=== PATIENT | female | born 1935 | race Two or more races ===

== ENCOUNTER 2018-02-09 13:38 | Inpatient (IN) | payer MEDICARE, OTHER ==
[~2018-02-09] VITALS: Ht 162.6 cm; Wt 99.1 kg
[~2018-02-09 13:38] MED LIST: AMIO200T4 PO; ATOR10TA PO; DILT120T2 PO; DOCU100C36 PO; ERGO500014 PO; FERR325T6 PO; FLUT1DIS IH; GABA-536 PO; HYDR-3024 PO; HYDR1TAB PO; MECL-118 PO; PANT40TA4 PO; PIOG45TA5 PO; PROP20TA7 PO; RAMI5CAP30 PO; RISE35TA PO; RIVA10TA PO; ZOLP5TAB2 PO
--- NOTE | 2018-02-09 13:40 | NUR ---
[id number] FROM AN ADULT [facility] DT NAUSEA, VOMITING. PER PATIENT'S DTR, PATIENT SEEMS ALTERED THAN USUAL. PATIENT RECEIVED AWAKE AND ALERT. APPEARS IN NO DISTRESS. RESPIRATION EVEN AND UNLABORED. SKIN IS WARM TO TOUCH AND NON DIAPHORETIC. AFEBRILE.
[2018-02-09 14:16] LABS: BASOPHILS % (AUTO) 0.7 % (0.0-2.0); EOSINOPHILS % (AUTO) 0.3 % (0.0-6.0); HEMATOCRIT 37 % (33-45); LYMPHOCYTES # (AUTO) 0.6 /CMM (0.8-4.8); LYMPHOCYTES % (AUTO) 12.1 % (20.0-44.0); MEAN CORPUSCULAR HGB CONC 32 g/dl (31.0-36.0); MEAN CORPUSCULAR VOLUME 82 fL (82-100); MONOCYTES # (AUTO) 0.1 /CMM (0.1-1.30); MONOCYTES % (AUTO) 1.7 % (2.0-12.0); NEUTROPHILS # (AUTO) 4.6 /CMM (1.8-8.9); NEUTROPHILS % (AUTO) 85.2 % (43.0-81.0); PLATELET COUNT (AUTO) 201 /CMM (150-450); RDW COEFFICIENT OF VARIATION 17.7 (11.5-15.0); RED BLOOD CELL COUNT(AUTO) 4.52 MIL/uL (4.0-5.2); WHITE BLOOD COUNT (AUTO) 5.3 K/uL (4.3-11.0)
[2018-02-09 14:26] LABS: CALCIUM, SERUM 9.2 mg/dL (8.5-10.1); CARBON DIOXIDE 26 mmol/L (21-32); CHLORIDE 105 mmol/L (98-107); CREATININE 1.6 mg/dL (0.6-1.3); GLUCOSE 186 mg/dL (74-106); SODIUM SERUM 140 mmol/L (136-145); UREA NITROGEN, BLOOD 47 mg/dL (7-18)
[2018-02-09 14:32] LABS: ALANINE AMINOTRANSFERASE 658 U/L (12-78); ALBUMIN 3.6 g/dL (3.4-5.0); ALKALINE PHOSPHATASE 294 U/L (46-116); BILIRUBIN,TOTAL 1.3 mg/dL (0.2-1.0); LIPASE 191 U/L (73-393); TOTAL PROTEIN, SERUM 8.4 g/dL (6.4-8.2)
--- NOTE | 2018-02-09 15:00 | NUR ---
PATIENT REFUSED IN AND OUT CATH AT THIS TIME,.
--- NOTE | 2018-02-09 15:10 | NUR ---
MD CARRILLO AT BEDSIDE
[2018-02-09] MEDS ORDERED: ONDANSETRON HCL/PF 4 MG/2 ML VIAL IV ONE (15:30)
[2018-02-09] MEDS ORDERED: FUROSEMIDE 20 MG/2 ML VIAL IV ONE (15:30)
[2018-02-09] MEDS ORDERED: FUROSEMIDE 20 MG/2 ML VIAL ONE (15:34)
[2018-02-09] MEDS ORDERED: ONDANSETRON HCL/PF 4 MG/2 ML VIAL ONE (15:34)
[2018-02-09 15:45] LABS: BAND % (MANUAL) 8 % (0.0-5.0); LYMPHOCYTES % (MANUAL) 9 % (16-48); MONOCYTES % (MANUAL) 4 % (0-11.0); NEUTROPHILS % (MANUAL) 79 (42-76)
[2018-02-09] MEDS ORDERED: LISI-607 PO (16:01)
[2018-02-09] MEDS ORDERED: OLOP5DRO15 EACHEYE (16:01)
[2018-02-09] MEDS ORDERED: TRAM50TA2 PO (16:01)
[2018-02-09] MEDS ORDERED: CLON0.5T12 PO (16:01)
[2018-02-09] MEDS ORDERED: LINA290C PO (16:01)
[2018-02-09] MEDS ORDERED: DAPA10TA PO (16:01)
[2018-02-09] MEDS ORDERED: ASPI-1169 PO (16:01)
[2018-02-09] MEDS ORDERED: BUME2TAB3 PO (16:01)
[2018-02-09] MEDS ORDERED: MELO-107 PO (16:01)
[2018-02-09] MEDS ORDERED: LOSA50TA21 PO (16:01)
[2018-02-09] MEDS ORDERED: METO-357 PO (16:01)
[2018-02-09 16:12] LABS: ASPARTATE AMINOTRANSFERASE 1175 U/L (15-37)
[2018-02-09 16:16] LABS: B-TYPE NATRIURETIC PEPTIDE 1932 PG/ML (0-125); TROPONIN I < 0.017 ng/mL (0.00-0.056)
[2018-02-09 16:18] LABS: INR 1.05 (0.87-1.13)
--- NOTE | 2018-02-09 16:42 | NUR ---
TELE 306-1 FOR GENERALIZED WEAKNESS, HYPERKALEMIA, VOMITING, STALIN MANDEL ADMITTING
--- NOTE | 2018-02-09 17:16 | NUR ---
REPORT GIVEN TO BRIAN BLEVINS
[2018-02-09] MEDS ORDERED: ONDANSETRON HCL/PF 4 MG/2 ML VIAL IVP PRN (18:00)
[2018-02-09] MEDS ORDERED: INSULIN REGULAR, HUMAN 100 UNIT/ML 3 ML VIAL SQ PRN (18:00)
[2018-02-09] MEDS ORDERED: IV NS 0.9% 1,000 ML BAG IV PRN (18:00)
[2018-02-09] MEDS ORDERED: Z GUARD REMEDY 2 OZ OINT TP PRN (18:00)
[2018-02-09] MEDS ORDERED: ZOLPIDEM TARTRATE 5 MG TABLET PO PRN (18:00)
[2018-02-09] MEDS ORDERED: MAGNESIUM HYDROXIDE 30 ML UDC PO PRN (18:00)
[2018-02-09] MEDS ORDERED: MAG HYDROX/AL HYDROX/SIMETH 30 ML UDC PO PRN (18:00)
[2018-02-09] MEDS ORDERED: HYDROCODONE/APAP 5/325MG 1 EACH TABLET PO PRN (18:00)
[2018-02-09] MEDS ORDERED: DEXTROSE 50%-WATER 50 ML DISP.SYRIN IV PRN (18:00)
--- NOTE | 2018-02-09 18:07 | NUR ---
PATIENT WAS TAKEN TO CT
--- NOTE | 2018-02-09 18:16 | NUR ---
DR. HARRINGTON (RADIOLOGIST) FROM [facility] ELECTED TO DO CT ABD. PELVIS WITHOUT CONTRAST, BECAUSE OF HIGH CREATININE (1.6).
--- NOTE | 2018-02-09 18:27 | NUR ---
PATIENT WAS TRANSFERRED TO TELE,. S
[2018-02-09] MEDS ORDERED: hydrOXYzine 10 MG TABLET PO PRN (18:30)
[2018-02-09] MEDS ORDERED: TRAMADOL HCL 50 MG TABLET PO PRN (18:30)
[2018-02-09] MEDS ORDERED: clonazePAM 0.5 MG TABLET PO PRN (18:30)
[2018-02-09 19:03] LABS: APPEARANCE,URINE Clear (CLEAR); BILIRUBIN,URINE Negative (NEGATIVE); BLOOD, URINE Trace-lysed Ery/uL (NEGATIVE); COLOR,URINE Yellow (YELLOW); KETONES,URINE Negative (NEGATIVE); LEUKOCYTE ESTERASE ,URINE Small (NEGATIVE); NITRITE, URINE Negative (NEGATIVE); PROTEIN,URINE Negative (NEGATIVE); UGLUCOSE 250 MG/DL mg/dL (NEGATIVE); UROBILINOGEN,URINE 0.2 EU/dL (0.2)
--- NOTE | 2018-02-09 19:25 | NUR ---
TELE/RN NOTES RECEIVED PT. LYING IN BED. PT. IS AWAKE, ALERT AND ORIENTED X 2-3. BREATHING EVEN AND UNLABORED ON 2LPM O2 VIA NC. NO SOB, RESPIRATORY DISTRESS OR COMPLAINTS OF PAIN NOTED AT THIS TIME. NO COMPLAINTS OF NAUSEA OR VOMITING AT THIS TIME. ORIENTED PT. TO ROOM. PT. WITH EXTERNAL QUALITY ENGINEERING MANAGER PRESENT AND INTACT. CURRENT RHYTHM = V PACING HR 60. PT. WITH RIGHT UPPER ARM 20 GAUGE IV SALINE LOCK PRESENT, PATENT AND INTACT. BED LOCKED AND IN LOWEST POSITION, SIDE RAILS UP X3, BED ALARM ON, CALL LIGHT WITHIN REACH, WILL CONTINUE TO MONITOR.
[2018-02-09 19:40] LABS: BACTERIA,URINE 3+ /HPF (None Seen); SQUAMOUS EPITHELIAL CELL,UR Few /HPF (None Seen)
[2018-02-09 19:41] LABS: RBC,URINE 0-2 /HPF (0-2)
[2018-02-09 20:00] VITALS: BP 92/54
[2018-02-09] MEDS: METRONIDAZOLE 500MG/ NS 100ML 500 MG in PREMIX 1 EA IV SCH (20:31)
[2018-02-09] MEDS: IV NS 0.9% 1,000 ML IV PRN (20:31)
--- NOTE | 2018-02-09 20:31 | NUR ---
TELE/RN NOTES ADMINISTERED 1900 SCHEDULED FLAGYL MEDICATION TO PATIENT AT THIS TIME BECAUSE MEDICATION JUST MADE AVAILABLE.
--- NOTE | 2018-02-09 21:32 | NUR ---
TELE/RN NOTES NOTIFIED [employer]ODUCT LISTER WILFRED SHAIKH TO CLARIFY PT. DIET ORDER. PER WILFRED SHAIKH OK FOR PT. TO HAVE CARDIAC DIET FOR NOW AND THEN NPO AFTER MIGNIGHT BECAUSE PT. WILL HAVE HIDA SCAN TOMORROW. NOTIFIED WILFRED SHAIKH PT. TROPONIN INCREASED FROM < 0.017 TO NOW 0.025. PT. IS CURRENTLY V PACING HR 62. VITAL SIGNS STABLE, NO COMPLAINTS OF PAIN NOTED AT THIS TIME. PER WILFRED SHAIKH OK NO NEW ORDERS, CONTINUE TO MONITOR. WILL CARRY OUT ORDERS. WILL CONTINUE TO MONITOR.
[2018-02-09] MEDS: PIPERACILLIN /TAZOBACTAM 2.25 G in IV D5W 50 ML IV SCH (21:54)
--- NOTE | 2018-02-09 21:54 | NUR ---
TELE/RN NOTES ADMINISTERED TO PT. 1900 SCHEDULED ZOSYN MEDICATION AT THIS TIME BECAUSE MEDICATION WAS PREVIOUSLY UNAVAILABLE, AND PT. WAS RECEIVING FLAGYL MEDICATION. WILL CONTINUE TO MONITOR.
[2018-02-09] MEDS: BLOOD SUGAR DIAGNOSTIC 1 EACH STRIP IN SCH (22:04)
[2018-02-10] VITALS: BP 100/54
[2018-02-10] MEDS: PIPERACILLIN /TAZOBACTAM 2.25 G in IV D5W 50 ML IV SCH ×5 (03:41→23:18)
[2018-02-10 04:00] VITALS: BP 93/59
[2018-02-10] MEDS: METRONIDAZOLE 500MG/ NS 100ML 500 MG in PREMIX 1 EA IV SCH ×3 (06:22→20:16)
[2018-02-10] MEDS: BLOOD SUGAR DIAGNOSTIC 1 EACH STRIP IN SCH ×4 (06:30→21:48)
[2018-02-10 06:31] LABS: BASOPHILS % (AUTO) 0.2 % (0.0-2.0); EOSINOPHILS % (AUTO) 0.3 % (0.0-6.0); HEMATOCRIT 33 % (33-45); HEMOGLOBIN 10.6 g/dL (11.5-14.8); LYMPHOCYTES # (AUTO) 1.1 /CMM (0.8-4.8); LYMPHOCYTES % (AUTO) 14.9 % (20.0-44.0); MEAN CORPUSCULAR HGB CONC 32 g/dl (31.0-36.0); MEAN CORPUSCULAR VOLUME 83 fL (82-100); MONOCYTES # (AUTO) 0.5 /CMM (0.1-1.30); MONOCYTES % (AUTO) 6.6 % (2.0-12.0); NEUTROPHILS # (AUTO) 5.6 /CMM (1.8-8.9); PLATELET COUNT (AUTO) 168 /CMM (150-450); RDW COEFFICIENT OF VARIATION 18.8 (11.5-15.0); RED BLOOD CELL COUNT(AUTO) 3.94 MIL/uL (4.0-5.2); WHITE BLOOD COUNT (AUTO) 7.1 K/uL (4.3-11.0)
[2018-02-10 06:45] LABS: CALCIUM, SERUM 8.5 mg/dL (8.5-10.1); CARBON DIOXIDE 24 mmol/L (21-32); CHLORIDE 108 mmol/L (98-107); CREATININE 2.3 mg/dL (0.6-1.3); GLUCOSE 110 mg/dL (74-106); MAGNESIUM 2.1 mg/dL (1.8-2.4); PHOSPHORUS 5.8 mg/dL (2.5-4.9); SODIUM SERUM 142 mmol/L (136-145); UREA NITROGEN, BLOOD 58 mg/dL (7-18)
[2018-02-10 06:53] LABS: CHOLESTEROL 91 mg/dL (<200); HDL CHOLESTEROL 44 mg/dL (40-60); LDL 45 mg/dL (0-99); TRIGLYCERIDES 62 mg/dL (30-150)
--- NOTE | 2018-02-10 06:53 | NUR ---
TELE/RN NOTES PT. IS LYING IN BED RESTING. BREATHING EVEN AND UNLABORED ON 2LPM O2 VIA NC. NO SOB, RESPIRATORY DISTRESS OR COMPLAINTS OF PAIN NOTED AT THIS TIME. NO COMPLAINTS OF NAUSEA OR VOMITING AT THIS TIME. PT. WITH EXTERNAL ROOM SERVICE ATTENDANT PRESENT AND INTACT. CURRENT RHYTHM = V PACING HR 60. PT. WITH RIGHT UPPER ARM 20 GAUGE PERIPHERAL IV PRESENT, PATENT AND INTACT ADMINISTERING TO PT. NS @ 50ML/HR. PT. REMAINS NPO PENDING HIDA SCAN TODAY. CONSENT SIGNED AND PLACED IN PT. CHART. ALL PT. NEEDS MET. PT. 0600 ZOSYN NOT ADMINISTERED AT THIS TIME BECAUSE LAST ZOSYN ADMINISTERED TO PT. AT 0341. WILL ENDORSE TO DAYSHIFT NURSE TO FOLLOW UP WITH PHARMACY IN REGARDS TO CHANGING THE MEDICATION ADMINISTRATION TIME. BED LOCKED AND IN LOWEST POSITION, SIDE RAILS UP X3, BED ALARM ON, CALL LIGHT WITHIN REACH, WILL ENDORSE TO DAYSHIFT NURSE FOR CONTINUITY OF CARE.
--- NOTE | 2018-02-10 07:20 | NUR ---
TELE/RN OPENING NOTE PATIENT IN BED. ALERT AND ORIENTED X3. PATIENT IS ADMITTED FOR ABDOMINAL PAIN. DENIES PAIN AT THIS TIME. ABDOMEN SOFT AND NON-DISTENDED. HYPOACTIVE BOWEL SOUNDS ON ALL 4 QUADS. RESPIRATION REGULAR AND UNLABORED. DENIES SOB. PATIENT V PACING AT 61. NPO MELGAR HIDA SCAN. LEXUS G 20 PATENT AND IV FLUIDS INFUSING WITH NO S/S INFILTRATION. BED LOW AND LOCKED. SIDE RAILS UP X3. CALL LIGHT WITHIN REACH. WILL CONTINUE TO MONITOR.
[2018-02-10] MEDS: PANTOPRAZOLE 40 MG TABLET.DR PO SCH (07:30)
[2018-02-10 07:48] LABS: POTASSIUM 6.4 mmol/L (3.5-5.1)
[2018-02-10 08:00] VITALS: BP 83/54
[2018-02-10] MEDS: GABAPENTIN 100 MG CAPSULE PO SCH ×3 (09:00→18:02)
[2018-02-10] MEDS: ATORVASTATIN 40 MG TABLET PO SCH (09:00)
[2018-02-10] MEDS: FERROUS SULFATE (325 MG) 325 MG/TAB TABLET PO SCH ×2 (09:00→18:02)
[2018-02-10] MEDS ORDERED: MELOXICAM 7.5 MG TABLET PO SCH (09:00)
[2018-02-10] MEDS ORDERED: INSULIN REGULAR, HUMAN 100 UNIT/ML 10 ML VIAL IV ONE (09:00)
[2018-02-10] MEDS: METOPROLOL SUCCINATE 50 MG TAB.SR.24H PO SCH (09:00)
[2018-02-10] MEDS ORDERED: Medication Not On Formulary EA (Linaclotide (Linzess) 290 MCG) PO SCH (09:00)
[2018-02-10] MEDS: MECLIZINE HCL 25 MG TABLET PO SCH (09:00)
[2018-02-10] MEDS ORDERED: DEXTROSE 50%-WATER 50 ML DISP.SYRIN IVP ONE (09:30)
[2018-02-10] MEDS: OLOPATADINE HCL 0.1% OPHTH BOTTLE EACHEYE SCH ×2 (09:34→18:02)
--- NOTE | 2018-02-10 10:00 | NUR ---
TELE/RN NOTE 0705 NOTED PATIENT`S POTASSIUM LEVEL 6.4. [address] ABRAHAM WITH NO NEW ORDER. WAITING FOR MD LIST. 0900 BURRER MACHINE MINISTERIO IS AWARE AND NEW ORDERS ARE RECEIVED. THE ORDERS NOTED AND CARRIED OUT. 0932 10 UNITS REGULAR INSULIN AND DEXTROSE 50% 50 ML GIVEN ORDERED. BLOOD SUGAR MONITORING DONE. NO EPISODES OF HYPOGLYCEMIA NOTED. WILL CONTINUE TO MONITOR.
[2018-02-10 11:12] LABS: ALBUMIN 2.8 g/dL (3.4-5.0); BILIRUBIN,DIRECT 0.2 mg/dL (0.0-0.2); BILIRUBIN,TOTAL 0.5 mg/dL (0.2-1.0)
--- NOTE | 2018-02-10 11:13 | NUR ---
TELE/RN NOTE HIDA SCAN CHANGED FROM ROUTINE TO STAT PER PHARMACIST MINISTERIO.
--- NOTE | 2018-02-10 11:22 | NUR ---
TELE/RN NOTE 1122 BLOOD SUGAR CHECK 75. PATIENT IN NO APPARENT DISTRESS.
--- NOTE | 2018-02-10 11:38 | NUR ---
TELE/RN NOTE PATIENT IS TAKEN FOR HIDA SCAN. PATIENT IN NO APPARENT DISTRESS. DENIES PAIN. RESPIRATION REGULAR AND UNLABORED. DENIES SOB. ALERT AND ORIENTED X3
--- NOTE | 2018-02-10 11:55 | NUR ---
NM:HIDA SCAN WAS COMPLETED. TECH:RB
[2018-02-10] MEDS: NYSTATIN CREAM 15 GM TUBE TP SCH ×2 (12:00→18:11)
[2018-02-10 13:39] LABS: CALCIUM, SERUM 8.9 mg/dL (8.5-10.1); CARBON DIOXIDE 28 mmol/L (21-32); CHLORIDE 110 mmol/L (98-107); CREATININE 2.3 mg/dL (0.6-1.3); GLUCOSE 99 mg/dL (74-106); POTASSIUM 6.1 mmol/L (3.5-5.1); SODIUM SERUM 145 mmol/L (136-145); UREA NITROGEN, BLOOD 60 mg/dL (7-18)
[2018-02-10] MEDS ORDERED: SODIUM POLYSTYRENE SULFONATE 15 G/60 ML BOTTLE PO ONE (14:00)
--- NOTE | 2018-02-10 14:00 | NUR ---
TELE/RN NOTE 1200 NYSTATIN CREAM IS NOT ADMINISTERED DUE TO PHARM NOT DELIVERY DESPITE MULTIPLE FOLLOW UP CALLS WERE MADE.
[2018-02-10 16:00] VITALS: BP 89/49
--- NOTE | 2018-02-10 17:00 | NUR ---
TELE/RN NOTE MRCP NOT DONE DUE TO PATIENT HAS PACEMAKER.
--- NOTE | 2018-02-10 18:15 | NUR ---
TELE/RN CLOSING NOTE PATIENT IN BED AWAKE. ALERT AND ORIENTED X3. DENIES PAIN. RESPIRATION REGULAR AND UNLABORED. DENIES SOB. PATIENT IN ROOM AIR AND OXYGEN SATURATION LEVEL AT 97%. PATIENT ON TELE MONITOR READING 60 V-PACING. PATIENT. LEXUS G 20 PATENT AND IV INFUSING WITH NO S/S INFILTRATION. BED LOW AND LOCKED. SIDE RAILS UP X3. CALL LIGHT WITHIN REACH. WILL ENDORSE TO HOT STRIP MILL SUPERVISOR.
--- NOTE | 2018-02-10 19:15 | NUR ---
HOSTESS PARTY SALES REPRESENTATIVE OPENING NOTE RECEIVED PATIENT IN BED, ALERT ORIENTED X3. [place] SPEAKING. ON 2L OF O2 VIA NC. TOLERATING WELL. RESPIRATIONS EVEN AND UNLABORED, IN NO APPARENT DISTRESS OR DISCOMFORT AT THIS TIME, DENIES PAIN AND SOB. PATIENT IS ON TELE MONITORING, V-PACING IN 60S. INCONTINENT WITH DIAPER. PATIENT WITH RIGHT UPPER ARM IVC 20G. WITH NS RUNNING AT 50ML/HR. PATIENT IS ABLE TO VERBALIZE NEEDS. KEPT CLEAN AND COMFORTABLE, SAFETY MEASURES IN PLACE, BED IN LOW LOCKED POSITION, SIDE RAILS UPX2, CALL LIGHT WITHIN EASY REACH. WILL CONTINUE TO MONITOR.
[2018-02-10 20:00] VITALS: BP 112/70
[2018-02-10 22:02] LABS: CREATININE, URINE 98.6 MG/DL (30.0-125.0)
[2018-02-10] MEDS: IV NS 0.9% 1,000 ML IV PRN (23:31)
[2018-02-10] MEDS: ACETAMINOPHEN 325 MG TABLET PO PRN (23:31)
[2018-02-10 23:49] LABS: CALCIUM, SERUM 8.6 mg/dL (8.5-10.1); CARBON DIOXIDE 25 mmol/L (21-32); CHLORIDE 109 mmol/L (98-107); CREATININE 2.2 mg/dL (0.6-1.3); GLUCOSE 114 mg/dL (74-106); POTASSIUM 5.3 mmol/L (3.5-5.1); SODIUM SERUM 145 mmol/L (136-145); UREA NITROGEN, BLOOD 59 mg/dL (7-18)
[2018-02-11] VITALS: BP 100/66
[2018-02-11 04:00] VITALS: BP 104/69
[2018-02-11] MEDS: METRONIDAZOLE 500MG/ NS 100ML 500 MG in PREMIX 1 EA IV SCH (04:23)
[2018-02-11] MEDS: PIPERACILLIN /TAZOBACTAM 2.25 G in IV D5W 50 ML IV SCH (05:41)
[2018-02-11 06:38] LABS: BASOPHILS % (AUTO) 0.6 % (0.0-2.0); EOSINOPHILS % (AUTO) 2.9 % (0.0-6.0); HEMATOCRIT 36 % (33-45); HEMOGLOBIN 11.5 g/dL (11.5-14.8); LYMPHOCYTES # (AUTO) 1.8 /CMM (0.8-4.8); LYMPHOCYTES % (AUTO) 27.7 % (20.0-44.0); MEAN CORPUSCULAR HGB CONC 32 g/dl (31.0-36.0); MEAN CORPUSCULAR VOLUME 83 fL (82-100); MONOCYTES # (AUTO) 0.6 /CMM (0.1-1.30); MONOCYTES % (AUTO) 8.6 % (2.0-12.0); NEUTROPHILS # (AUTO) 3.9 /CMM (1.8-8.9); NEUTROPHILS % (AUTO) 60.2 % (43.0-81.0); PLATELET COUNT (AUTO) 157 /CMM (150-450); RDW COEFFICIENT OF VARIATION 18.8 (11.5-15.0); RED BLOOD CELL COUNT(AUTO) 4.29 MIL/uL (4.0-5.2); WHITE BLOOD COUNT (AUTO) 6.6 K/uL (4.3-11.0)
[2018-02-11 07:11] LABS: CALCIUM, SERUM 9.1 mg/dL (8.5-10.1); CARBON DIOXIDE 29 mmol/L (21-32); CHLORIDE 110 mmol/L (98-107); CREATININE 2.3 mg/dL (0.6-1.3); GLUCOSE 110 mg/dL (74-106); MAGNESIUM 2.3 mg/dL (1.8-2.4); PHOSPHORUS 5.4 mg/dL (2.5-4.9); POTASSIUM 5.3 mmol/L (3.5-5.1); SODIUM SERUM 146 mmol/L (136-145); UREA NITROGEN, BLOOD 58 mg/dL (7-18)
--- NOTE | 2018-02-11 07:42 | NUR ---
WAITER/WAITRESS FIRST CLASS CLOSING NOTE PATIENT IN BED, SLEEPING, AROUSED EASY TO VERBAL STIMULI, ORIENTED X3. POLISH SPEAKING. ON ROOM AIR TOLERATING WELL. RESPIRATIONS EVEN AND UNLABORED, IN NO APPARENT DISTRESS OR DISCOMFORT AT THIS TIME, DENIES PAIN AND SOB. PATIENT IS ON TELE MONITORING, V-PACING IN 60S. INCONTINENT WITH DIAPER, HAD 2 BMS. PATIENT WITH RIGHT UPPER ARM IVC 20G. WITH NS RUNNING AT 50ML/HR. PATIENT IS ABLE TO VERBALIZE NEEDS. KEPT CLEAN AND COMFORTABLE, ALL NEEDS ATTENDED, SAFETY MEASURES IN PLACE, BED IN LOW LOCKED POSITION, SIDE RAILS UPX2, CALL LIGHT WITHIN EASY REACH, WILL ENDORSE TO AM NURSE FOR CARY.
[2018-02-11 08:00] VITALS: BP 134/73
--- NOTE | 2018-02-11 08:00 | NUR ---
RN NOTES RECEIVED PATIENT IN THE BED A/O X3 [place] SPEAKER ON TELE V-PACING 60. PATIENT STABLE HAS NO RESPIRATORY DISTRESS. PATIENT COMPLAINING OF HEADACHE ADMINISTERED TYLENOL 650 MG PO PRN , AND SCHEDULED MEDICATION. V/S TAKEN STABLE, PATIENT BED REST. PATIENT INCONTINENT. NEEDS ATTENDED AND ANTICIPATED, CALL LIGHT WITHIN TO REACH. ASSIST TURN AND REPOSTION Q2 HR. PATIENT GOING TO D/C [facility] FOR MRCP PROCEDURE.
[2018-02-11] MEDS: ACETAMINOPHEN 325 MG TABLET PO PRN (08:31)
[2018-02-11] MEDS: BLOOD SUGAR DIAGNOSTIC 1 EACH STRIP IN SCH (08:31)
[2018-02-11] MEDS: GABAPENTIN 100 MG CAPSULE PO SCH (08:32)
[2018-02-11] MEDS: ATORVASTATIN 40 MG TABLET PO SCH (08:32)
[2018-02-11] MEDS: MECLIZINE HCL 25 MG TABLET PO SCH (08:32)
[2018-02-11] MEDS: PANTOPRAZOLE 40 MG TABLET.DR PO SCH (08:33)
[2018-02-11] MEDS: FERROUS SULFATE (325 MG) 325 MG/TAB TABLET PO SCH (08:33)
[2018-02-11 08:34] VITALS: BP 134/73
[2018-02-11] MEDS: METOPROLOL SUCCINATE 50 MG TAB.SR.24H PO SCH (08:34)
[2018-02-11] MEDS: NYSTATIN CREAM 15 GM TUBE TP SCH (09:28)
[2018-02-11] MEDS: OLOPATADINE HCL 0.1% OPHTH BOTTLE EACHEYE SCH (09:29)
--- NOTE | 2018-02-11 10:45 | NUR ---
RN NOTES PATIENT STABLE, NO ACUTE RESPIRATORY DISTRESS, V/S STABLE, BS-113 MG/DL. PATIENT D/C AT THIS TIME GOING TO [facility] FOR MRCP PROCEDURE. FAMILY AWARE OF. REPORT GIVEN BRIAN HADDAD. RN VERBALIZED UNDERSTANDING. PATIENT HAS NO BELONGING. PATIENT DISTRIBUTION CENTER ASSOCIATE BY AMBULANCE.
[2018-02-11] MEDS ORDERED: METRONIDAZOLE 500 MG TABLET PO SCH (13:00)
[2018-02-13] MEDS ORDERED: ERGOCALCIFEROL (VITAMIN D 2) 50,000 UNIT CAPSULE PO SCH (07:30)
== END 2018-02-11 11:30 | disposition short-term general hospital (02) | DRG 444 ==
LOC: ER 13:43 → TELE 16:59 → MED 02-10 08:36 → TELE 02-10 10:36 → MED 02-11 11:25
PROVIDERS: ADMIT Nurse Practitioner Acute Care; ATTEND Nurse Practitioner Acute Care
DX: K80.51 Calculus of bile duct without cholangitis or cholecystitis with obstruction (principal); N17.0 Acute kidney failure with tubular necrosis; K72.00 Acute and subacute hepatic failure without coma; E87.2 Acidosis; E11.22 Type 2 diabetes mellitus with diabetic chronic kidney disease; D72.825 Bandemia; M84.422S Pathological fracture, left humerus, sequela; N39.0 Urinary tract infection, site not specified; I13.0 Hypertensive heart and chronic kidney disease with heart failure and stage 1 through stage 4 chronic kidney disease, or unspecified chronic kidney disease; I50.9 Heart failure, unspecified; E86.0 Dehydration; B96.20 Unspecified Escherichia coli [E. coli] as the cause of diseases classified elsewhere; R74.0 Nonspecific elevation of levels of transaminase and lactic acid dehydrogenase [LDH]; E80.6 Other disorders of bilirubin metabolism; N18.9 Chronic kidney disease, unspecified; K59.00 Constipation, unspecified; E78.5 Hyperlipidemia, unspecified; I25.10 Atherosclerotic heart disease of native coronary artery without angina pectoris; K21.9 Gastro-esophageal reflux disease without esophagitis; Z95.2 Presence of prosthetic heart valve; Z95.0 Presence of cardiac pacemaker; Z86.73 Personal history of transient ischemic attack (TIA), and cerebral infarction without residual deficits; Z79.01 Long term (current) use of anticoagulants; M85.80 Other specified disorders of bone density and structure, unspecified site; M19.90 Unspecified osteoarthritis, unspecified site; L30.4 Erythema intertrigo; K57.90 Diverticulosis of intestine, part unspecified, without perforation or abscess without bleeding
CPT/HCPCS: 36415; 71045-TC; 76700-TC; 78226; 80048-TC; 80061-TC; 80076-TC; 81000-TC; 82570-TC; 82962-TC; 83605-TC; 83690-TC; 83735-TC; 83880; 84100-TC; 84300-TC; 84484-TC; 85025-TC; 85730-TC; 87040-TC; 87081-TC; 87086-TC; 87186-TC; 93307-TC; A4216; A4606; A9537; J1815; J1940; J2405; J2543; J3490; J7030; J7060; J8597; Z7610